=== PATIENT | female | born 1985 | race African-American/Black ===

== ENCOUNTER 2023-04-21 16:05 | Emergency (ER) | payer MEDICAID, OTHER ==
[~2023-04-21] VITALS: Ht 185.4 cm; Wt 87.0 kg
[2023-04-21 16:11] VITALS: BP 148/88; PULSE 88; RESP 18; TEMP 98.4; O2SAT 100
== END 2023-04-21 17:05 | disposition left against medical advice (07) ==
LOC: ER 16:05
DX: F41.9 Anxiety disorder, unspecified (principal); I49.9 Cardiac arrhythmia, unspecified; Z53.21 Procedure and treatment not carried out due to patient leaving prior to being seen by health care provider
CPT/HCPCS: 93005; 99281